=== PATIENT | male | born 1995 ===

== ENCOUNTER 2019-05-17 11:23 | Emergency (ER) | payer SELFPAY ==
[2019-05-17 12:21] VITALS: BP 152/82
--- NOTE | 2019-05-17 12:35 | UC ---
Ear Complaint HPI - HPI Summary HPI Summary: patient started to feel L upper wisdom tooth pain 1 week ago. yesterday he started having achey L ear and decreased hearing. denies discharge Took ibuprofen this am for pain relief - History of Current Complaint Chief Complaint: UCDentalProblem Stated Complaint: EAR PAIN Time Seen by Provider: 05/17/19 12:13 Hx Obtained From: Patient Onset/Duration: Gradual Onset Severity Initially: Mild Severity Currently: Mild Pain Intensity: 0 Aggravating Factors: Other - chewing Alleviating Factors: Nothing Associated Signs/Symptoms: Positive: Hearing Loss. Negative: Discharge, Foreign Body Sensation, Trauma to Ear - Allergies/Home Medications Allergies/Adverse Reactions: Allergies Allergy/AdvReac Type Severity Reaction Status Date / Time No Known Allergies Allergy Unverified 05/17/19 12:14 Home Medications: Home Medications Acetaminophen [Tylenol Extra Strength] 500 mg PO ONCE 05/17/19 [History Confirmed 05/17/19] Ibuprofen TAB* [Motrin TAB* 600 MG] 600 mg PO Q6H PRN #30 tab 05/17/19 [Rx] clindamycin HCL [Clindamycin HCl] 300 mg PO TID #21 capsule 05/17/19 [Rx] PMH/Surg Hx/FS Hx/Imm Hx Previously Healthy: Yes - Surgical History Surgical History: None - Family History Known Family History: Positive: None Negative: Respiratory Disease - Social History Occupation: Employed Full-time Lives: With Family Alcohol Use: None Substance Use Type: None Smoking Status (MU): Heavy Every Day Tobacco Smoker Amount Used/How Often: 1 PPD Cessation Counseling: Patient Advised to Stop Review of Systems All Other Systems Reviewed And Are Negative: Yes Constitutional: Positive: Negative. Negative: Fever ENT: Positive: Dental Pain, Ear Ache. Negative: Sinus Congestion Respiratory: Positive: Negative. Negative: Shortness Of Breath, Cough Psychological: Positive: Negative Is Patient Immunocompromised?: No Physical Exam Triage Information Reviewed: Yes Appearance: Well-Appearing, No Pain Distress, Well-Nourished Vital Signs: Initial Vital Signs Temp 98.2 F 05/17/19 12:16 Pulse 81 05/17/19 12:16 Resp 16 05/17/19 12:16 BP 152/82 05/17/19 12:16 Pulse Ox 100 05/17/19 12:16 Vital Signs Reviewed: Yes ENT: Positive: Pharynx normal, Other - L TM occluded by cerumen impaction, no discharge or redness in canal Dental: Positive: Gross Decay/Caries @ - L upper 3rd molar partially erupted, surrounding gum erythematous and swollen Neck exam: Normal Neck: Positive: Supple, Nontender, No Lymphadenopathy Respiratory Exam: Normal Respiratory: Positive: Lungs clear Cardiovascular Exam: Normal Cardiovascular: Positive: RRR Neurological Exam: Normal Neurological: Positive: Alert Psychological Exam: Normal Re-Evaluation - Re-Evaluation First Eval Re-Evaluation Time: 12:35 Change: Improved - L TM pearly, canal free from erythema or discharge, patient hearing restored Ear Complaint Course/Dx - Differential Dx/Diagnosis Differential Diagnosis/HQI/PQRI: Cerumen Impaction, Foreign Body, Otitis Externa , Otitis Media Provider Diagnosis: Cerumen impaction, Dental abscess Discharge ED - Sign-Out/Discharge Documenting (check all that apply): Patient Departure All imaging exams completed and their final reports reviewed: No Studies - Discharge Plan Condition: Good Disposition: HOME Prescriptions: clindamycin HCL [Clindamycin HCl] 300 mg PO TID #21 capsule Ibuprofen TAB* [Motrin TAB* 600 MG] 600 mg PO Q6H PRN #30 tab PRN Reason: Pain - Moderate Patient Education Materials: Cerumen Impaction (ED), Toothache (ED) Referrals: No Primary Care Phys,NOPCP [Primary Care Provider] - Additional Instructions: keep ears clean and dry start antibiotic for today and take as directed see dentist as soon as possible for further evaluation Ibuprofen as directed for pain - Billing Disposition and Condition Condition: GOOD Disposition: Home
== END 2019-05-17 13:07 | disposition home or self-care (01) ==
LOC: UCEAST 11:23
DX: K04.7 Periapical abscess without sinus (principal); K02.9 Dental caries, unspecified; H61.22 Impacted cerumen, left ear; F17.200 Nicotine dependence, unspecified, uncomplicated
CPT/HCPCS: 99201; G0463